=== PATIENT | female | born 2005 | race American Indian/Alaskan Native ===

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

== ENCOUNTER 2025-03-11 19:29 | Emergency (ER) | payer OTHER ==
[2025-03-11] MEDS: Albuterol 6.7 GM Inhaler INH ONE (20:28)
== END 2025-03-11 21:35 | disposition home or self-care (01) ==
LOC: JD.ED 19:29
DX: J45.21 Mild intermittent asthma with (acute) exacerbation (principal); Z86.16 Personal history of COVID-19; Z91.018 Allergy to other foods; Z91.010 Allergy to peanuts
CPT/HCPCS: 71046; 94640; 99285; A9270